=== PATIENT | female | born 1960 | race Hispanic/Latino ===

== ENCOUNTER 2018-02-02 18:29 | Emergency (ER) | payer SELFPAY ==
[2018-02-02 20:03] LABS: Urine Blood NEGATIVE (NEG); Urine Glucose NEGATIVE (NEG); Urine Protein NEGATIVE (NEG)
[2018-02-02 20:07] LABS: Urine Bacteria 20-50 /HPF (<20); Urine Culture Reflex Order NOT NEEDED; Urine RBC <5 /HPF (NONE SEEN)
--- NOTE | 2018-02-02 20:26 | RAD REPORT ---
EXAM DESCRIPTION: CT - Head Brain Wo Cont - 02/02/2018 8:11 pm CLINICAL HISTORY: Dizziness. Fall with head injury. COMPARISON: None. TECHNIQUE: Computed axial tomography of the head was obtained. IV contrast was not requested. All CT scans are performed using dose optimization technique as appropriate and may include automated exposure control or mA/KV adjustment according to patient size. FINDINGS: An intracranial bleed is not seen . The ventricles are normal in caliber. No extra-axial fluid collection is noted. Fluid within the sinuses/ mastoids is not seen. IMPRESSION: No acute intracranial abnormality is seen. If patient's symptoms persist MRI of the bra in would be recommended.
[2018-02-02 20:30] LABS: Albumin 3.3 g/dL (3.4-5.0); Bilirubin Direct 0.2 mg/dL (0-0.2); Bilirubin Total 0.6 mg/dL (0.2-1.0); Potassium 4.1 mmol/L (3.5-5.1); Protein, Total 7.6 g/dL (6.4-8.2)
[2018-02-02 20:36] LABS: Absolute Monocytes 0.8 K/uL (0.1-1.3); Absolute Neutrophil 3.2 K/uL (1.8-8.0); Basophils % 0.6 % (0-1.3); Eosinophils % 1.6 % (0-4.4); Hematocrit 36.7 % (36.0-45.0); Lymphocytes % 41.8 % (15.3-44.8); MCH 27.5 pg (27.0-35.0); MCV 81.8 fL (80-100); MPV 9.5 fL (7.6-11.3); Monocytes % 10.9 % (3.3-12.3); RBC Red Blood Cell Count 4.49 M/uL (3.86-4.86)
--- NOTE | 2018-02-02 20:46 | EDPHYS ---
Physician Documentation [facility] Name: Naomy Gutiérrez Age: 57 yrs Sex: Female : 1960 Arrival Date: 02/02/2018 Time: 18:32 Bed 13 Private MD: None, None ED Physician Amadou Torres HPI: 02/02 20:32 This 57 yrs old Female presents to ER via Wheelchair with complaints of jr8 [place]. 20:32 Family stated that she has been off balance and falling a lot. History of UTI's. Stated jr8 that she has had similar problems in past and ended up being UTI. Currently without pain. Severity of symptoms: At their worst the symptoms were mild in the emergency department the symptoms are unchanged. The patient has not experienced similar symptoms in the past. The patient has not recently seen a physician. Historical: - Allergies: 18:49 No Known Allergies; aa5 - PMHx: 18:49 Bipolar disorder; Schizophrenia; Depression; aa5 - PSHx: 18:49 Tubal ligation; aa5 - Immunization history:: Adult Immunizations unknown. - Social history:: Smoking status: Patient/guardian denies using tobacco. - Ebola Screening: : No symptoms or risks identified at this time. ROS: 20:32 Eyes: Negative for injury, pain, redness, and discharge, ENT: Negative for injury, jr8 pain, and discharge, Neck: Negative for injury, pain, and swelling, Cardiovascular: Negative for chest pain, palpitations, and edema, Respiratory: Negative for shortness of breath, cough, wheezing, and pleuritic chest pain, Abdomen/GI: Negative for abdominal pain, nausea, vomiting, diarrhea, and constipation, Back: Negative for injury and pain, MS/Extremity: Negative for injury and deformity, Skin: Negative for injury, rash, and discoloration. 20:32 Neuro: Positive for dizziness, gait disturbance, Negative for altered mental status, headache, hearing loss, loss of consciousness, numbness, seizure activity, speech changes, syncope, near syncope, tingling, tinnitus, tremor, visual changes, weakness. Exam: 20:32 Eyes: Pupils equal round and reactive to light, extra-ocular motions intact. Lids and jr8 lashes normal. Conjunctiva and sclera are non-icteric and not injected. Cornea within normal limits. Periorbital areas with no swelling, redness, or edema. ENT: Nares patent. No nasal discharge, no septal abnormalities noted. Tympanic membranes are normal and external auditory canals are clear. Oropharynx with no redness, swelling, or masses, exudates, or evidence of obstruction, uvula midline. Mucous membranes moist. Neck: Trachea midline, no thyromegaly or masses palpated, and no cervical lymphadenopathy. Supple, full range of motion without nuchal rigidity, or vertebral point tenderness. No Meningismus. Cardiovascular: Regular rate and rhythm with a normal S1 and S2. No gallops, murmurs, or rubs. Normal PMI, no JVD. No pulse deficits. Respiratory: Lungs have equal breath sounds bilaterally, clear to auscultation and percussion. No rales, rhonchi or wheezes noted. No increased work of breathing, no retractions or nasal flaring. Abdomen/GI: Soft, non-tender, with normal bowel sounds. No distension or tympany. No guarding or rebound. No evidence of tenderness throughout. Back: No spinal tenderness. No costovertebral tenderness. Full range of motion. Skin: Warm, dry with normal turgor. Normal color with no rashes, no lesions, and no evidence of cellulitis. MS/ Extremity: Pulses equal, no cyanosis. Neurovascular intact. Full, normal range of motion. Neuro: Awake and alert, GCS 15, oriented to person, place, time, and situation. Cranial nerves II-XII grossly intact. Motor strength 5/5 in all extremities. Sensory grossly intact. Cerebellar exam normal. Normal gait. Vital Signs: 18:49 BP 103 / 60; Pulse 75; Resp 16 S; Temp 97.4(TE); Pulse Ox 95% on R/A; Weight 101.6 kg aa5 (R); Height 5 ft. 2 in. (157.48 cm) (R); Pain 0/10; 19:53 BP 105 / 65 Supine; Pulse 58; Resp 16 S; Pulse Ox 95% on R/A; bs1 19:55 BP 113 / 84 Sitting; Pulse 69; Resp 16; Pulse Ox 96% on R/A; bs1 20:00 BP 93 / 76 Standing; Pulse 79; Resp 16; Pulse Ox 100% on R/A; bs1 21:00 BP 112 / 61; Pulse 62; Resp 16; Temp 98(O); Pulse Ox 97% on R/A; Pain 0/10; bs1 18:49 Body Mass Index 40.97 (101.60 kg, 157.48 cm) aa5 MDM: 18:54 Patient medically screened. 20:45 Data reviewed: vital signs, nurses notes, lab test result(s), radiologic studies, CT jr8 scan, and as a result, I will discharge patient. Data interpreted: Pulse oximetry: on room air is 100 %. Interpretation: normal. Counseling: I had a detailed discussion with the patient and/or guardian regarding: the historical points, exam findings, and any diagnostic results supporting the discharge/admit diagnosis, lab results, the need for outpatient follow up, a family practitioner, to return to the emergency department if symptoms worsen or persist or if there are any questions or concerns that arise at home. 02/02 19:23 Order name: Urine Microscopic Only; Complete Time: 20:30 [facility] 02/02 19:24 Order name: Urine Culture [facility] 02/02 19:24 Order name: Urine Culture [facility] 02/02 19:29 Order name: Urine Dipstick--Ancillary (enter results); Complete Time: 20:30 [facility] 02/02 19:29 Order name: Urine --Ancillary (enter results); Complete Time: 20:30 [facility] 02/02 19:30 Order name: Basic Metabolic Panel; Complete Time: 20:31 02/02 19:30 Order name: CBC with Diff; Complete Time: 20:45 [facility] 02/02 19:30 Order name: Creatinine for Radiology; Complete Time: 20:30 [facility] 02/02 19:30 Order name: Hepatic Function; Complete Time: 20:31 02/02 19:30 Order name: IV Saline Lock; Complete Time: 20:22 [facility] 02/02 19:30 Order name: Labs collected and sent; Complete Time: 20:22 02/02 19:30 Order name: Magnesium; Complete Time: 20:31 02/02 19:30 Order name: CT Head Brain wo Cont; Complete Time: 20:30 02/02 19:30 Order name: Urine Dipstick-Ancillary (obtain specimen); Complete Time: 20:22 [facility] 02/02 19:30 Order name: Orthostatics; Complete Time: 20:22 jr8 Administered Medications: 20:51 Drug: Rocephin - (cefTRIAXone) 1 grams Route: IVPB; Infused Over: 30 mins; Site: left bs1 antecubital; 21:04 Follow up: IV Status: Completed infusion bs1 Disposition: 02/03 12:11 Co-signature as Attending Physician, Amadou Torres MD I agree with the assessment and sabine plan of care. Disposition: 02/02/18 20:45 Discharged to Home. Impression: Urinary tract infection, site not specified. - Condition is Stable. - Discharge Instructions: Urinary Tract Infection, Adult. - Prescriptions for Macrobid 100 mg Oral Capsule - take 1 capsule by ORAL route every 12 hours for 10 days; 20 capsule. - Medication Reconciliation Form, Thank You Letter, Antibiotic Education, Prescription Opioid Use form. - Follow up: Private Physician; When: 1 - 2 days; Reason: Recheck today's complaints, Continuance of care, Re-evaluation by your physician. - Problem is new. - Symptoms have improved. Signatures: Dispatcher [employer] EDMT Amadou Torres MD MD cha Calderon, Audri, RN RN aa5 Magdaleno Fuller PA PA jr8 Nancy Aggarwal, RN RN bs1 Corrections: (The following items were deleted from the chart) 02/02 21:16 20:45 02/02/2018 20:45 Discharged to Home. Impression: Urinary tract infection, site bs1 not specified. Condition is Stable. Forms are Medication Reconciliation Form, Thank You Letter, Antibiotic Education, Prescription Opioid Use. Follow up: Private Physician; When: 1 - 2 days; Reason: Recheck today's complaints, Continuance of care, Re-evaluation by your physician. Problem is new. Symptoms have improved. jr8
--- NOTE | 2018-02-02 20:46 | ER ---
Nurse's Notes [facility] Name: Naomy Gutiérrez Age: 57 yrs Sex: Female : 1960 Arrival Date: 02/02/2018 Time: 18:32 Bed 13 Private MD: None, None Diagnosis: Urinary tract infection, site not specified Presentation: 02/02 18:46 Presenting complaint: Patient states: "I fell today". Pt states "I just fell aa5 backwards". Pt's daughter states "she's been falling a lot over the last few weeks and she's been confused recently". Pt currently A \\T\\ 0 x 3 in triage. Pt denies pain. Transition of care: patient was not received from another setting of care. Onset of symptoms was January 2018. Risk Assessment: Do you want to hurt yourself or someone else? Patient reports no desire to harm self or others. Initial Sepsis Screen: Does the patient meet any 2 criteria? No. Patient's initial sepsis screen is negative. Does the patient have a suspected source of infection? No. Patient's initial sepsis screen is negative. Care prior to arrival: None. 18:46 Method Of Arrival: Wheelchair aa5 18:46 Acuity: ALBARO 3 aa5 Historical: - Allergies: 18:49 No Known Allergies; aa5 - PMHx: 18:49 Bipolar disorder; Schizophrenia; Depression; aa5 - PSHx: 18:49 Tubal ligation; aa5 - Immunization history:: Adult Immunizations unknown. - Social history:: Smoking status: Patient/guardian denies using tobacco. - Ebola Screening: : No symptoms or risks identified at this time. Screenin:24 Abuse screen: Denies threats or abuse. Denies injuries from another. Nutritional bs1 screening: No deficits noted. Tuberculosis screening: No symptoms or risk factors identified. Fall Risk Fall in past 12 months (25 points). No secondary diagnosis (0 pts). IV access (20 points). Ambulatory Aid- Crutches/Cane/Walker (15 pts). Gait- Weak (10 pts.). Mental Status- Overestimates/Forgets Limitations (15 pts.). Total Collier Fall Scale indicates High Risk Score (45 or more points). Side Rails Up X 2 Frequent Obs/Assessments Occuring Family Present and informed to notify staff if the need to leave the bedside As available patient and family educated on Fall Prevention Program and Strategies. Assessment: 19:10 General: Appears in no apparent distress. Behavior is cooperative, flat, quiet. bs1 19:10 Pain: Complains of pain in right lower abdomen, left shoulder. Neuro: Level of bs1 Consciousness is awake, confused, Reports weakness family reports patient having "shaky spells" and falling more frequently. Cardiovascular: Denies chest pain, shortness of breath, Heart tones S1 S2 present Capillary refill < 3 seconds Patient's skin is warm and dry. Respiratory: Airway is patent Trachea midline Respiratory effort is even, unlabored, Respiratory pattern is regular, symmetrical, Breath sounds are clear bilaterally. GI: No signs and/or symptoms were reported involving the gastrointestinal system. : Urine is dark dariela, foul smelling urine. EENT: No signs and/or symptoms were reported regarding the EENT system. Derm: Skin is intact. Musculoskeletal: Circulation, motion, and sensation intact. Capillary refill < 3 seconds. 21:00 Reassessment: Patient appears in no apparent distress at this time. Patient and/or bs1 family updated on plan of care and expected duration. Pain level reassessed. Patient is alert, oriented x 3, equal unlabored respirations, skin warm/dry/pink. Informed patient/family of discharge instructions. Patient/family state understanding of POC. Vital Signs: 18:49 BP 103 / 60; Pulse 75; Resp 16 S; Temp 97.4(TE); Pulse Ox 95% on R/A; Weight 101.6 kg aa5 (R); Height 5 ft. 2 in. (157.48 cm) (R); Pain 0/10; 19:53 BP 105 / 65 Supine; Pulse 58; Resp 16 S; Pulse Ox 95% on R/A; bs1 19:55 BP 113 / 84 Sitting; Pulse 69; Resp 16; Pulse Ox 96% on R/A; bs1 20:00 BP 93 / 76 Standing; Pulse 79; Resp 16; Pulse Ox 100% on R/A; bs1 21:00 BP 112 / 61; Pulse 62; Resp 16; Temp 98(O); Pulse Ox 97% on R/A; Pain 0/10; bs1 18:49 Body Mass Index 40.97 (101.60 kg, 157.48 cm) aa5 ED Course: 18:32 Patient arrived in ED. mr 18:32 None, None is Private Physician. mr 18:48 Triage completed. aa5 18:48 Arm band placed on. aa5 18:54 Magdaleno Fuller PA is PHCP. jr8 18:54 Amadou Torres MD is Attending Physician. jr8 19:15 Patient has correct armband on for positive identification. Bed in low position. Call bs1 light in reach. Side rails up X 1. Pulse ox on. NIBP on. 19:19 Nancy Aggarwal, RN is Primary Nurse. bs1 19:56 No provider procedures requiring assistance completed. Inserted saline lock: 20 gauge bs1 in left antecubital area, using aseptic technique. Blood collected. by me, Flushed with 10cc. 20:11 CT Head Brain wo Cont In Process Unspecified. EDMS 21:08 IV discontinued, bleeding controlled, No redness/swelling at site. Pressure dressing bs1 applied. Administered Medications: 20:51 Drug: Rocephin - (cefTRIAXone) 1 grams Route: IVPB; Infused Over: 30 mins; Site: left bs1 antecubital; 21:04 Follow up: IV Status: Completed infusion bs1 Outcome: 20:45 Discharge ordered by . jr8 21:08 Discharged to home ambulatory, with family. bs1 21:08 Condition: stable 21:08 Discharge instructions given to patient, family, Instructed on discharge instructions, follow up and referral plans. medication usage, Demonstrated understanding of instructions, follow-up care, medications, Prescriptions given X 1. 21:16 Patient left the ED. bs1 Addendum: 02/05/2018 07:36 Addendum: Culture Results: Positive urine culture. No further action required. Bacteria s s sensitive to prescribed antibiotic. Signatures: Dispatcher [employer] EDUT Leila McclendonKylie RN RN [email or web address] Mariann Young RN RN ss Roszak, Josh, PA PA jr8 Nancy Aggarwal, RN RN bs1 Corrections: (The following items were deleted from the chart) 02/02 18:50 18:46 Presenting complaint: Patient states: "I fell today". Pt states "I just fell aa5 backwards". Pt's daughter states "she's been falling a lot over the last few weeks and she's been confused recently". Pt currently A \\T\\ 0 x 3 in triage. aa5
[2018-02-02] MEDS ORDERED: CEFTRIAXONE/SWI 1gm 1 GM/10 ML SYR ONE (20:52)
== END 2018-02-02 21:16 | disposition home or self-care (01) ==
LOC: SUPCPDRO 18:29 → ER 18:29
DX: N39.0 Urinary tract infection, site not specified (principal)
CPT/HCPCS: 36415; 70450; 80048; 80076; 81003; 81015; 81025; 83735; 85025; 87077; 87086; 87088; 87186; 96374; 99284; J0696

== ENCOUNTER 2018-09-19 05:12 | Emergency (ER) | payer SELFPAY ==
[2018-09-19 05:49] LABS: Absolute Lymphocytes (CBC) 3.8 K/uL (0.7-4.9); Absolute Monocytes 1.1 K/uL (0.1-1.3); Absolute Neutrophil 5.5 K/uL (1.8-8.0); Basophils % 0.7 % (0-1.3); Eosinophils % 1.1 % (0-4.4); Hematocrit 39.9 % (36.0-45.0); Lymphocytes % 35.8 % (15.3-44.8); MPV 9.7 fL (7.6-11.3)
[2018-09-19] MEDS ORDERED: NA CHLORIDE 0.9% 1,000 ML ONE (05:56)
[2018-09-19] MEDS ORDERED: ONDANSETRON 4 MG/2 ML VIAL ONE (05:56)
[2018-09-19 06:05] LABS: ALT/SGPT 14 U/L (12-78); AST/SGOT 16 U/L (15-37); Albumin 3.8 g/dL (3.4-5.0); Alkaline Phosphatase 86 U/L (45-117); BUN Blood Urea Nitrogen 11 mg/dL (7-18); Bicarbonate 30 mmol/L (21-32); Bilirubin Direct < 0.1 mg/dL (0-0.2); Bilirubin Total 0.3 mg/dL (0.2-1.0); Glucose Level 95 mg/dL (74-106); Lipase 58 U/L (73-393); Potassium 3.7 mmol/L (3.5-5.1); Protein, Total 8.4 g/dL (6.4-8.2); Sodium Level 135 mmol/L (136-145)
[2018-09-19] MEDS ORDERED: KETOROLAC 30 MG/ML INJ ONE (06:51)
--- NOTE | 2018-09-19 07:41 | ER ---
Nurse's Notes [facility] Name: Naomy Gutiérrez Age: 58 yrs Sex: Female : 1960 Arrival Date: 09/19/2018 Time: 05:13 Bed 5 Private MD: Diagnosis: Nausea and vomiting;Back pain Presentation: 09/19 05:30 Presenting complaint: Patient states: vomiting and lower flank pain that radiates to tl2 front since 1999 last night. Transition of care: patient was not received from another setting of care. Onset of symptoms was September 18, 2018 at 20:00. Risk Assessment: Do you want to hurt yourself or someone else? Patient reports no desire to harm self or others. Initial Sepsis Screen: Does the patient meet any 2 criteria? No. Patient's initial sepsis screen is negative. Does the patient have a suspected source of infection? No. Patient's initial sepsis screen is negative. Care prior to arrival: None. 05:30 Method Of Arrival: Ambulatory tl2 05:30 Acuity: ALBARO 3 tl2 Triage Assessment: 05:32 General: Appears in no apparent distress. uncomfortable, Behavior is calm, cooperative, tl2 appropriate for age. Pain: Complains of pain in left mid back and right mid back Pain radiates to right lower quadrant and left lower quadrant. Neuro: Level of Consciousness is awake, alert, obeys commands, Oriented to person, place, time, situation. Cardiovascular: Denies chest pain. Respiratory: Airway is patent Respiratory effort is even, unlabored, Respiratory pattern is regular, symmetrical. GI: Reports lower abdominal pain. : No signs and/or symptoms were reported regarding the genitourinary system. Derm: Skin is pink, warm \T\ dry. Historical: - Allergies: 05:32 No Known Allergies; tl2 - Home Meds: 05:32 Cogentin Oral [Active]; Haldol Oral [Active]; Depakote Oral [Active]; tl2 - PMHx: 05:32 Bipolar disorder; Depression; Schizophrenia; tl2 - PSHx: 05:32 None; tl2 - Immunization history:: Adult Immunizations up to date. - Social history:: Smoking status: Patient/guardian denies using tobacco. - Ebola Screening: : No symptoms or risks identified at this time. Screenin:36 Abuse screen: Denies threats or abuse. Nutritional screening: No deficits noted. tl2 Tuberculosis screening: No symptoms or risk factors identified. Fall Risk None identified. Assessment: 05:36 General: see triage assessment. tl2 07:00 Reassessment: RECD REPORT FROM CALVIN JANSEN. 58YO HF P/W VOMITING AND BILATERAL FLANK bp PAIN. LABS IN PROCESS, NO ACUTE DISTRESS AT THIS TIME. 08:05 Reassessment: PT D/C HOME AMBULATORY WITH FAMILY, DX WITH NAUSEA AND VOMITING. bp Vital Signs: 05:32 BP 171 / 95; Pulse 63; Resp 18; Temp 97.2; Pulse Ox 100% on R/A; Weight 108.86 kg; tl2 Height 5 ft. 4 in. (162.56 cm); Pain 5/10; 06:49 BP 144 / 91; Pulse 69; Resp 18; Pulse Ox 98% on R/A; tl2 07:15 BP 138 / 79; Pulse 63; Resp 16; Pulse Ox 100% ; bp 05:32 Body Mass Index 41.20 (108.86 kg, 162.56 cm) tl2 ED Course: 05:13 Patient arrived in ED. do 05:31 Triage completed. tl2 05:32 Arm band placed on right wrist. tl2 05:36 Patient has correct armband on for positive identification. Placed in gown. Bed in low tl2 position. Call light in reach. Side rails up X 1. Adult w/ patient. 05:40 Inserted saline lock: 20 gauge in right antecubital area, using aseptic technique. tl2 Blood collected. placed by kaleb Allen. 06:12 Suha Raya FNP-C is [facility]. snw 06:12 Dwayne Pichardo MD is Attending Physician. snw 07:[address], JUSTYNA is Primary Nurse. bp 08:05 No provider procedures requiring assistance completed. IV discontinued, intact, bp bleeding controlled, No redness/swelling at site. Pressure dressing applied. Administered Medications: 05:51 Drug: NS 0.9% 1000 ml Route: IV; Rate: 125 ml/hr; Site: right antecubital; tl2 07:27 Follow up: IV Status: Completed infusion; IV Intake: 1000ml bp 05:51 Drug: Zofran 4 mg Route: IVP; Site: right antecubital; tl2 07:27 Follow up: Response: Nausea is decreased bp 06:41 Drug: TORadol 30 mg Route: IVP; Infused Over: 2 mins; Site: right antecubital; tl1 07:27 Follow up: Response: Pain is decreased bp Intake: 07:27 IV: 1000ml; Total: 1000ml. bp Outcome: 07:40 Discharge ordered by MD. arreaga 08:06 Discharged to home ambulatory, with family. bp 08:06 Condition: stable 08:06 Discharge instructions given to patient, Instructed on discharge instructions, follow up and referral plans. medication usage, Demonstrated understanding of instructions, follow-up care, medications, Prescriptions given X 2. 08:06 Patient left the ED. bp Signatures: Suha Raya, MANAGER OF CASE MANAGEMENT-C MANAGER OF CASE MANAGEMENT-Cs[facility] Mary Huerta, RN RN tl1 Ayesha Gates Taylor RN RN tl2 Abhijit Way RN RN bp
--- NOTE | 2018-09-19 07:41 | EDPHYS ---
Physician Documentation [facility] Name: Naomy Gutiérrez Age: 58 yrs Sex: Female : 1960 Arrival Date: 09/19/2018 Time: 05:13 Bed 5 Private MD: ED Physician Dwayne Pichardo HPI: 09/19 07:38 This 58 yrs old Female presents to ER via Ambulatory with complaints of snw Vomiting, Back Pain. 07:38 The patient presents to the emergency department with nausea, vomiting. Onset: The snw symptoms/episode began/occurred suddenly. Possible causes: unknown. The symptoms are aggravated by nothing. The symptoms are alleviated by nothing. Severity of symptoms: At their worst the symptoms were moderate in the emergency department the symptoms have improved. It is unknown whether or not the patient has had similar symptoms in the past. The patient has not recently seen a physician. Historical: - Allergies: 05:32 No Known Allergies; tl2 - Home Meds: 05:32 Cogentin Oral [Active]; Haldol Oral [Active]; Depakote Oral [Active]; tl2 - PMHx: 05:32 Bipolar disorder; Depression; Schizophrenia; tl2 - PSHx: 05:32 None; tl2 - Immunization history:: Adult Immunizations up to date. - Social history:: Smoking status: Patient/guardian denies using tobacco. - Ebola Screening: : No symptoms or risks identified at this time. ROS: 07:29 Constitutional: Negative for fever, chills, and weight loss, Eyes: Negative for injury, snw pain, redness, and discharge, ENT: Negative for injury, pain, and discharge, Neck: Negative for injury, pain, and swelling, Cardiovascular: Negative for chest pain, palpitations, and edema, Respiratory: Negative for shortness of breath, cough, wheezing, and pleuritic chest pain. 07:29 Back: Negative for injury. + generalized back pain : Negative for injury, bleeding, discharge, and swelling, MS/Extremity: Negative for injury and deformity, Skin: Negative for injury, rash, and discoloration, Neuro: Negative for headache, weakness, numbness, tingling, and seizure. 07:29 Abdomen/GI: Positive for nausea, vomited x 2 episodes since start of symptoms 3 days ago. Exam: 07:28 Constitutional: This is a well developed, well nourished patient who is awake, alert, snw and in no acute distress. Head/Face: Normocephalic, atraumatic. Eyes: Pupils equal round and reactive to light, extra-ocular motions intact. Lids and lashes normal. Conjunctiva and sclera are non-icteric and not injected. Cornea within normal limits. Periorbital areas with no swelling, redness, or edema. ENT: Nares patent. No nasal discharge, no septal abnormalities noted. Tympanic membranes are normal and external auditory canals are clear. Oropharynx with no redness, swelling, or masses, exudates, or evidence of obstruction, uvula midline. Mucous membranes moist. Neck: Trachea midline, no thyromegaly or masses palpated, and no cervical lymphadenopathy. Supple, full range of motion without nuchal rigidity, or vertebral point tenderness. No Meningismus. Chest/axilla: Normal chest wall appearance and motion. Nontender with no deformity. No lesions are appreciated. Cardiovascular: Regular rate and rhythm with a normal S1 and S2. No gallops, murmurs, or rubs. Normal PMI, no JVD. No pulse deficits. Respiratory: Lungs have equal breath sounds bilaterally, clear to auscultation and percussion. No rales, rhonchi or wheezes noted. No increased work of breathing, no retractions or nasal flaring. Abdomen/GI: Soft, non-tender, with normal bowel sounds. No distension or tympany. No guarding or rebound. No evidence of tenderness throughout. MS/ Extremity: Pulses equal, no cyanosis. Neurovascular intact. Full, normal range of motion. Neuro: Awake and alert, GCS 15, oriented to person, place, time, and situation. Cranial nerves II-XII grossly intact. Motor strength 5/5 in all extremities. Sensory grossly intact. Cerebellar exam normal. Normal gait. Psych: Awake, alert, with orientation to person, place and time. Behavior, mood, and affect are within normal limits. 07:28 Skin: Warm, dry with normal turgor. Normal color with no rashes, no lesions, and no evidence of cellulitis. 07:28 Back: pain, that is mild, that is moderate, of the left scapular area, right scapular area, left subscapular area, right subscapular area, thoracic area, lumbar area, left low back, left mid back, right mid back and right low back, ROM is normal, normal spinal alignment noted. Vital Signs: 05:32 BP 171 / 95; Pulse 63; Resp 18; Temp 97.2; Pulse Ox 100% on R/A; Weight 108.86 kg; tl2 Height 5 ft. 4 in. (162.56 cm); Pain 5/10; 06:49 BP 144 / 91; Pulse 69; Resp 18; Pulse Ox 98% on R/A; tl2 07:15 BP 138 / 79; Pulse 63; Resp 16; Pulse Ox 100% ; bp 05:32 Body Mass Index 41.20 (108.86 kg, 162.56 cm) tl2 MDM: 06:12 Patient medically screened. snw 07:34 Data reviewed: vital signs, nurses notes. Data interpreted: Pulse oximetry: on room air snw is 100 %. Interpretation: normal. Counseling: I had a detailed discussion with the patient and/or guardian regarding: the historical points, exam findings, and any diagnostic results supporting the discharge/admit diagnosis, lab results, the need for outpatient follow up. Response to treatment: pt with very vague complaints, VSS, toradol greatly relieved her symptoms. Depakote level high normal discussed. Will dc with pain and nausea medications with return precautions. 09/19 05:28 Order name: Basic Metabolic Panel; Complete Time: 06:12 tw4 09/19 05:28 Order name: CBC with Diff; Complete Time: 06:12 4 09/19 05:28 Order name: Creatinine for Radiology; Complete Time: 06:12 4 09/19 05:28 Order name: Hepatic Function; Complete Time: 06:12 09/19 05:28 Order name: Lipase; Complete Time: 06:12 09/19 06:19 Order name: Depakote tl2 09/19 05:28 Order name: IV Saline Lock; Complete Time: 05:50 4 09/19 05:28 Order name: Labs collected and sent; Complete Time: 05:50 4 09/19 05:28 Order name: Urine Dipstick-Ancillary (obtain specimen); Complete Time: 07:27 tw4 09/19 06:20 Order name: Valproic Acid (Depakene) Level; Complete Time: 07:28 EDMS 09/19 07:38 Order name: Urine Dipstick--Ancillary (enter results) eb Administered Medications: 05:51 Drug: NS 0.9% 1000 ml Route: IV; Rate: 125 ml/hr; Site: right antecubital; tl2 07:27 Follow up: IV Status: Completed infusion; IV Intake: 1000ml bp 05:51 Drug: Zofran 4 mg Route: IVP; Site: right antecubital; tl2 07:27 Follow up: Response: Nausea is decreased bp 06:41 Drug: TORadol 30 mg Route: IVP; Infused Over: 2 mins; Site: right antecubital; tl1 07:27 Follow up: Response: Pain is decreased bp Disposition: 09/19/18 07:40 Discharged to Home. Impression: Nausea and vomiting, Back pain. - Condition is Stable. - Discharge Instructions: Back Pain, Adult, Nausea and Vomiting, Adult, Back Exercises, Back Injury Prevention. - Prescriptions for Zofran 4 mg Oral Tablet - take 1 tablet by ORAL route every 12 hours As needed; 20 tablet. Diclofenac Sodium 75 mg Oral Tablet Sustained Release - take 1 tablet by ORAL route 2 times per day; 30 tablet. - Medication Reconciliation Form, Thank You Letter, Antibiotic Education, Prescription Opioid Use form. - Follow up: Private Physician; When: 2 - 3 days; Reason: Recheck today's complaints, Continuance of care, Re-evaluation by your physician. Follow up: Emergency Department; When: As needed; Reason: Worsening of condition. Signatures: Dispatcher [employer] [facility] Suha Raya, MARYELLEN-C RELIABILITY SPECIALIST-[employer] Mary Huerta RN RN tl1 Jessica Wolfe RN RN tl2 Abhijit Way, JUSTYNA RN bp Dwayne Pichardo MD MD tw4 Corrections: (The following items were deleted from the chart) 08:06 07:40 09/19/2018 07:40 Discharged to Home. Impression: Nausea and vomiting; Back pain. bp Condition is Stable. Forms are Medication Reconciliation Form, Thank You Letter, Antibiotic Education, Prescription Opioid Use. Follow up: Private Physician; When: 2 - 3 days; Reason: Recheck today's complaints, Continuance of care, Re-evaluation by your physician. Follow up: Emergency Department; When: As needed; Reason: Worsening of condition. snw
[2018-09-19 08:25] LABS: Urine Blood TRACE (NEG); Urine Glucose NEGATIVE (NEG); Urine Protein TRACE (NEG)
== END 2018-09-19 08:06 | disposition home or self-care (01) ==
LOC: ER 05:12
DX: R11.2 Nausea with vomiting, unspecified (principal); M54.9 Dorsalgia, unspecified; F31.9 Bipolar disorder, unspecified; F32.9 Major depressive disorder, single episode, unspecified; F20.9 Schizophrenia, unspecified
CPT/HCPCS: 36415; 80048; 80076; 80164; 81003; 83690; 85025; 96361; 96374; 96375; 99284; J2405; J7030

== ENCOUNTER 2019-12-29 13:24 | Emergency (ER) | payer SELFPAY ==
[2019-12-29 15:10] LABS: Absolute Lymphocytes (CBC) 3.4 K/uL (0.7-4.9); Basophils % 0.7 % (0-1.3); Hematocrit 35.1 % (36.0-45.0); Lymphocytes % 40.5 % (15.3-44.8); MPV 9.2 fL (7.6-11.3); RBC Red Blood Cell Count 4.28 M/uL (3.86-4.86)
--- NOTE | 2019-12-29 15:15 | RAD REPORT ---
EXAM DESCRIPTION: RAD - Hip Left 2 View - 12/29/2019 3:05 pm CLINICAL HISTORY: Left hip pain FINDINGS: No fracture or dislocation is seen. Moderate spondylosis consisting joint space narrowing, osteophytes and subchondral sclerosis. Bones are osteoporotic
--- NOTE | 2019-12-29 15:16 | RAD REPORT ---
EXAM DESCRIPTION: RAD - Foot Left 3 View - 12/29/2019 3:06 pm CLINICAL HISTORY: Left Foot pain FINDINGS: No fracture or dislocation is seen. Osteoporosis. Hallux valgus deformity Large calcaneal spurs
[2019-12-29 15:55] LABS: Albumin 3.7 g/dL (3.4-5.0); Bilirubin Total 0.4 mg/dL (0.2-1.0); Potassium 4.4 mmol/L (3.5-5.1); Protein, Total 7.9 g/dL (6.4-8.2)
--- NOTE | 2019-12-29 16:22 | ER ---
Nurse's Notes [facility] Name: Naomy Gutiérrez Age: 59 yrs Sex: Female : 1960 Arrival Date: 12/29/2019 Time: 13:28 Bed 28 Private MD: Diagnosis: Contusion of left foot;Pain in left hip;Pain in left foot Presentation: 12/28 13:35 Chief complaint: Patient states: Taking OTC water pills x 2 days Patient's son or jl7 daughter states: Low back, left leg and left foot hurting x 3 days, pt denies urinary symptoms, reports swelling to bilateral knees. Coronavirus screen: Patient denies a cough. Patient denies shortness of breath or difficulty breathing. Patient denies measured and/or subjective temperature greater than 100.4F prior to today's visit. Patient denies travel on a cruise ship or to a country the [facility] currently lists as an affected area. Patient denies contact with known and/or suspected case of COVID-19. Proceed with normal triage. Ebola Screen: No symptoms or risks identified at this time. Initial Sepsis Screen: Does the patient meet any 2 criteria? No. Patient's initial sepsis screen is negative. Does the patient have a suspected source of infection? No. Patient's initial sepsis screen is negative. Risk Assessment: Do you want to hurt yourself or someone else? Patient reports no desire to harm self or others. Onset of symptoms was December 29, 2019. Care prior to arrival: None. Transition of care: patient was not received from another setting of care. 13:35 Method Of Arrival: Ambulatory [facility] 13:35 Acuity: ALBARO 3 jl7 Historical: - Allergies: 13:40 No Known Allergies; jl7 - Home Meds: 13:40 Cogentin Oral [Active]; Depakote Oral [Active]; Haldol Oral [Active]; jl7 14:17 "OTC water pills" [Active]; vc 14:18 cranberry pills [Active]; vc - PMHx: 13:40 Bipolar disorder; Depression; Schizophrenia; jl7 - PSHx: 13:40 None; jl7 - Immunization history:: Adult Immunizations unknown. - Social history:: Smoking status: Patient denies any tobacco usage or history of. - Family history:: not pertinent. - Hospitalizations: : No recent hospitalization is reported. Screenin:30 Abuse screen: Denies threats or abuse. Nutritional screening: No deficits noted. vc Tuberculosis screening: No symptoms or risk factors identified. Fall Risk None identified. Assessment: 14:30 General: Appears in no apparent distress. comfortable, Behavior is calm, cooperative, vc appropriate for age. Pain: Complains of pain in left low back, left hip and left fifth toe Quality of pain is described as sharp, shooting. Neuro: Level of Consciousness is awake, alert, obeys commands, Oriented to person, place, time, situation. Cardiovascular: Capillary refill < 3 seconds Patient's skin is warm and dry. Respiratory: Airway is patent Respiratory effort is even, unlabored, Respiratory pattern is regular, symmetrical. Derm: Bruising that is bright red, on left fifth toe. Musculoskeletal: Circulation, motion, and sensation intact. Range of motion: intact in all extremities. 15:30 Reassessment: Patient appears in no apparent distress at this time. Patient and/or vc family updated on plan of care and expected duration. Pain level reassessed. Patient is alert, oriented x 3, equal unlabored respirations, skin warm/dry/pink. 16:05 Reassessment: Patient appears in no apparent distress at this time. Patient and/or vc family updated on plan of care and expected duration. Pain level reassessed. Patient is alert, oriented x 3, equal unlabored respirations, skin warm/dry/pink. Patient states symptoms have not improved. Vital Signs: 13:35 BP 124 / 76; Pulse 75; Resp 17; Temp 97.2; Pulse Ox 96% ; Weight 96.16 kg; Pain 8/10; jl7 16:10 BP 140 / 79; Pulse 60; Resp 17; Pulse Ox 100% on R/A; vc ED Course: 13:28 Patient arrived in ED. mr 13:38 Triage completed. jl7 13:40 Arm band placed on right wrist. jl7 14:12 Vesna Comer, JUSTYNA is Primary Nurse. vc 14:23 Abiel Petty MD is Attending Physician. rn 14:30 Patient has correct armband on for positive identification. Bed in low position. Call vc light in reach. Pulse ox on. NIBP on. 14:30 Warm blanket given. vc 15:04 XRAY Foot LEFT 3 View In Process Unspecified. EDMS 15:04 XRAY Hip LEFT 2 view In Process Unspecified. EDMS 16:47 No provider procedures requiring assistance completed. IV discontinued, intact, vc bleeding controlled, No redness/swelling at site. Pressure dressing applied. Administered Medications: No medications were administered Outcome: 16:21 Discharge ordered by . rn 16:48 Discharged to home ambulatory. vc 16:48 Condition: good 16:48 Discharge instructions given to patient, Instructed on discharge instructions, follow up and referral plans. Demonstrated understanding of instructions, follow-up care. 17:00 Patient left the ED. vc Signatures: Dispatcher [employer] EDME HakanAgata PettyAbiel MD MD rn Leal, Jahala RN RN jl7 Vesna Comer RN RN vc
--- NOTE | 2019-12-29 16:22 | EDPHYS ---
Physician Documentation [facility] Name: Naomy Gutiérrez Age: 59 yrs Sex: Female : 1960 Arrival Date: 12/29/2019 Time: 13:28 Bed 28 Private MD: ED Physician Abiel Petty HPI: 12/28 16:12 This 59 yrs old Female presents to ER via Ambulatory with complaints of foot rn pain, Feet Swelling, Leg Pain. 16:13 The patient presents with an injury, pain. The complaints affect the left foot. Onset: rn The symptoms/episode began/occurred 2 day(s) ago. Modifying factors: The symptoms are alleviated by nothing, the symptoms are aggravated by weight bearing, movement. Severity of symptoms: At their worst the symptoms were mild, in the emergency department the symptoms are unchanged. The patient has not experienced similar symptoms in the past. Reports kicked in left foot, 5th toe, + swelling and bruising, happened 2 days ago and pain with ambulation. Also reports after that began, started to have intermittent left hip and lower back pain, no trauma to that region, no fever, no decreased ROM. Also noticed subjective swelling to both knees and legs, taking OTC fluid pills with some improvement. No hx of heart failure or kidney failure. . Historical: - Allergies: 13:40 No Known Allergies; jl7 - Home Meds: 13:40 Cogentin Oral [Active]; Depakote Oral [Active]; Haldol Oral [Active]; jl7 14:17 "OTC water pills" [Active]; vc 14:18 cranberry pills [Active]; vc - PMHx: 13:40 Bipolar disorder; Depression; Schizophrenia; jl7 - PSHx: 13:40 None; jl7 - Immunization history:: Adult Immunizations unknown. - Social history:: Smoking status: Patient denies any tobacco usage or history of. - Family history:: not pertinent. - Hospitalizations: : No recent hospitalization is reported. ROS: 16:13 Constitutional: Negative for fever, chills, and weight loss, Back: Negative for injury rn MS/Extremity: + left foot and left hip pain Skin: Neg for open wounds. Neuro: Negative for headache, weakness, numbness, tingling, and seizure. Exam: 16:16 Constitutional: This is a well developed, well nourished patient who is awake, alert, rn and in no acute distress. Skin: Warm, dry and no evidence of cellulitis. MS/ Extremity: Pulses equal, no cyanosis. Neurovascular intact. Full, normal range of motion. Equal circumference. FROM left hip without swelling or masses. No discoloration. + 5th toe with bruising, mild painful ROM, no deformity or open wounds. Vital Signs: 13:35 BP 124 / 76; Pulse 75; Resp 17; Temp 97.2; Pulse Ox 96% ; Weight 96.16 kg; Pain 8/10; jl7 16:10 BP 140 / 79; Pulse 60; Resp 17; Pulse Ox 100% on R/A; vc MDM: 14:23 Patient medically screened. rn 16:18 Differential diagnosis: fracture, sprain, arthritis. Data reviewed: vital signs, nurses rn notes, radiologic studies, plain films, and as a result, I will discharge patient. Counseling: I had a detailed discussion with the patient and/or guardian regarding: the historical points, exam findings, and any diagnostic results supporting the discharge/admit diagnosis, lab results, radiology results, the need for outpatient follow up, to return to the emergency department if symptoms worsen or persist or if there are any questions or concerns that arise at home. Special discussion: I discussed with the patient/guardian in detail that at this point there is no indication for admission to the hospital. It is understood, however, that if the symptoms persist or worsen the patient needs to return immediately for re-evaluation. ED course: No heart failure/kidney failure, neg xrays, will dc home with ibuprofen and pcp f/u. . 12/28 14:35 Order name: CMP; Complete Time: 15:58 vc 12/28 14:35 Order name: Basic Metabolic Panel vc 12/28 14:30 Order name: XRAY Foot LEFT 3 View; Complete Time: 15:46 rn 12/28 14:35 Order name: BNP; Complete Time: 15:58 vc 12/28 14:35 Order name: CBC with Manual Differential 12/28 15:36 Order name: Urine Dipstick--Ancillary (enter results) bd 12/28 14:30 Order name: XRAY Hip LEFT 2 view; Complete Time: 15:46 rn Administered Medications: No medications were administered Disposition: 12/29/19 16:21 Discharged to Home. Impression: Contusion of left foot, Pain in left hip, Pain in left foot. - Condition is Stable. - Discharge Instructions: Arthritis, Foot Contusion, Foot Pain. - Medication Reconciliation Form, Thank You Letter, Antibiotic Education, Prescription Opioid Use form. - Follow up: Private Physician; When: As needed; Reason: Recheck today's complaints, Re-evaluation by your physician. - Problem is new. - Symptoms have improved. Signatures: Dispatcher [employer] EDAbiel Muñoz MD MD rn Leal, Jahala, RN RN jl7 Vesna Comer RN RN vc Corrections: (The following items were deleted from the chart) 16:19 16:16 Constitutional: This is a well developed, well nourished patient who is awake, rn alert, and in no acute distress. rn 17:00 16:21 12/29/2019 16:21 Discharged to Home. Impression: Contusion of left foot; Pain in vc left hip; Pain in left foot. Condition is Stable. Forms are Medication Reconciliation Form, Thank You Letter, Antibiotic Education, Prescription Opioid Use. Follow up: Private Physician; When: As needed; Reason: Recheck today's complaints, Re-evaluation by your physician. Problem is new. Symptoms have improved. rn
[2019-12-29 16:47] LABS: Blood Morphology Comment NOT SEEN (NOT SEEN); Platelet Estimate ADEQ
[2019-12-29 20:48] LABS: Urine Blood NEGATIVE (NEG); Urine Glucose NEGATIVE (NEG); Urine Protein NEGATIVE (NEG); Urine Specific Gravity 1.015 (1.005-1.030)
[2019-12-29 22:40] VITALS: TEMP 97.2
[2019-12-29 22:41] VITALS: BP 140/79; O2SAT 100
== END 2019-12-29 17:00 | disposition home or self-care (01) ==
LOC: ER 13:24
DX: S90.32XA Contusion of left foot, initial encounter (principal); M25.552 Pain in left hip; X58.XXXA Exposure to other specified factors, initial encounter
CPT/HCPCS: 36415; 80053; 81003; 83880; 85025; 99283

== ENCOUNTER 2024-01-21 18:47 | Emergency (ER) | payer MEDICARE ==
[2024-01-21] MEDS ORDERED: IBUPROFEN 200 MG TAB PO ONE (19:33)
--- NOTE | 2024-01-21 20:07 | RAD REPORT ---
EXAM DESCRIPTION: CT - Head C Spine Mpr Wo Con - 01/21/2024 7:41 pm CLINICAL HISTORY: Head and neck injury status post fall. Head and neck pain COMPARISON: None. TECHNIQUE: Computed axial tomography of the head and cervical spine was obtained. Sagittal and coronal reconstruction was performed. All CT scans are performed using dose optimization technique as appropriate and may include automated exposure control or mA/KV adjustment according to patient size. FINDINGS: An intracranial bleed is not seen. The ventricles are normal in caliber. No significant hypodensity within the brain. An extra-axial fluid collection is not noted. Fluid within the visualized sinuses and mastoids is not seen A cervical fracture is not visualized. No dislocation is noted. IMPRESSION: No acute intracranial abnormality is seen. A cervical fracture is not visualized. If the patient continues to have symptoms to suggest intracranial /spinal cord pathology then MRI wou ld be recommended
--- NOTE | 2024-01-21 20:14 | RAD REPORT ---
EXAM DESCRIPTION: RAD - Forearm Right - 01/21/2024 8:00 pm CLINICAL HISTORY: Right arm pain status post fall FINDINGS: Mild impaction fracture distal radius. Avulsion fracture ulnar styloid process No dislocation
--- NOTE | 2024-01-21 20:14 | RAD REPORT ---
EXAM DESCRIPTION: RAD - Hand Right 3 View - 01/21/2024 7:59 pm CLINICAL HISTORY: Right hand pain status post injury FINDINGS: Mild impaction fracture distal radius. Avulsion fracture ulnar styloid process No dislocation
--- NOTE | 2024-01-21 21:05 | ER ---
Nurse's Notes [facility] Name: Naomy Gutiérrez Age: 63 yrs Sex: Female : 1960 Arrival Date: 01/21/2024 Time: 18:47 Bed 12 Private MD: Diagnosis: Impacted fracture distal radius - left arm;Avulsion fracture ulnar styloid - left;Fall from truck Presentation: 01/20 19:04 Chief complaint: Patient states: Pt states holding onto the side of a truck and fell. dd2 C/o pain Rt hand, rt thumb and head. Denies LOC. Coronavirus screen: At this time, the client does not indicate any symptoms associated with coronavirus-19. Ebola Screen: No symptoms or risks identified at this time. Initial Sepsis Screen: Does the patient meet any 2 criteria? No. Patient's initial sepsis screen is negative. Does the patient have a suspected source of infection? No. Patient's initial sepsis screen is negative. Risk Assessment: Do you want to hurt yourself or someone else? Patient reports no desire to harm self or others. Onset of symptoms was January 21, 2024. 19:04 Method Of Arrival: Ambulatory dd2 19:04 Acuity: ALBARO 3 dd2 Triage Assessment: 19:07 General: Appears uncomfortable, Behavior is cooperative. Pain: Complains of pain in RT dd2 THUMB, RT FOREARM, RT WRIST AND HEAD. Historical: - Allergies: 19:07 No Known Allergies; dd2 - Immunization history:: Adult Immunizations unknown. - Infectious Disease History:: Denies. - Social history:: Smoking status: Patient denies any tobacco usage or history of. Screenin:19 [facility] ED Fall Risk Assessment (Adult) History of falling in the last 3 months, vc1 including since admission No falls in past 3 months (0 pts) Confusion or Disorientation No (0 pts) Intoxicated or Sedated No (0 pts) Impaired Gait No (0 pts) Mobility Assist Device Used No (0 pt) Altered Elimination No (0 pt) Score/Fall Risk Level 0 - 2 = Low Risk Oriented to surroundings, Maintained a safe environment, Educated pt \T\ family on fall prevention, incl call for assistance when getting out of bed. Abuse screen: Denies threats or abuse. Nutritional screening: No deficits noted. Tuberculosis screening: No symptoms or risk factors identified. Assessment: 20:20 General: Appears in no apparent distress. comfortable, Behavior is calm, cooperative, vc1 appropriate for age. Pain: Complains of pain in right hand Quality of pain is described as sharp. Neuro: Level of Consciousness is awake, alert, obeys commands, Oriented to person, place, time, situation, Appropriate for age. Cardiovascular: No deficits noted. Respiratory: Airway is patent Respiratory effort is even, unlabored, Respiratory pattern is regular, symmetrical, Breath sounds are clear bilaterally. GI: No deficits noted. No signs and/or symptoms were reported involving the gastrointestinal system. : No deficits noted. No signs and/or symptoms were reported regarding the genitourinary system. EENT: No deficits noted. No signs and/or symptoms were reported regarding the EENT system. Derm: Skin is intact, is healthy with good turgor, Skin is dry. Musculoskeletal: Reports pain in right hand. Vital Signs: 19:04 BP 196 / 88; Pulse 90; Resp 17; Temp 97.7; Pulse Ox 98% ; dd2 21:44 BP 174 / 84; Pulse 88; Resp 17; Pulse Ox 99% ; vc1 ED Course: 18:49 Patient arrived in ED. mr 18:56 Patti Sheth, MARYELLEN-Edwin is [facility] kb 18:56 Amadou Torres MD is Attending Physician. kb 19:07 Triage completed. dd2 19:07 Arm band placed on left wrist. Patient placed in waiting room. dd2 19:43 CT Head C Spine In Process Unspecified. EDMS 20:01 Hand Right 3 View XRAY In Process Unspecified. EDMS 20:01 Forearm Right XRAY In Process Unspecified. EDMS 20:20 Patient has correct armband on for positive identification. Bed in low position. Adult vc1 w/ patient. 21:05 Orthoglass splint: Sugar tong splint applied on right arm. Sling applied to right arm. kmf 21:43 No provider procedures requiring assistance completed. Patient did not have IV access vc1 during this emergency room visit. Administered Medications: 19:36 Drug: Ibuprofen PO 600 mg PO once Route: PO; vc1 21:12 Follow up: Response: No adverse reaction; Marked relief of symptoms vc1 Medication: 20:20 VIS not applicable for this client. vc1 Outcome: 21:04 Discharge ordered by . kb 21:43 Discharged to home ambulatory, vc1 21:43 Condition: good 21:43 Discharge instructions given to patient, Instructed on discharge instructions, follow up and referral plans. medication usage, Demonstrated understanding of instructions, follow-up care, medications, Prescriptions given X 1, 21:44 Patient left the ED. vc1 Signatures: Dispatcher [employer] EDMS Patti Sheth, FOOD SERVICES MANAGER-C FOOD SERVICES MANAGER-Agata Vaughn, Reg Reg mr Vesna Comer RN RN vc1 [facility]andy [facility] DONNA VILLANUEVA RN RN dd2
--- NOTE | 2024-01-21 21:05 | EDPHYS ---
Physician Documentation [facility] Name: Naomy Gutiérrez Age: 63 yrs Sex: Female : 1960 Arrival Date: 01/21/2024 Time: 18:47 Bed 12 Private MD: ED Physician Amadou Torres HPI: 01/20 21:16 This 63 yrs old Female presents to ER via Ambulatory with complaints of Fall kb Injury, Hand Injury. 21:16 Patient is a 63-year-old female who presents for right wrist pain after falling out of kb her truck around 3 PM. States she was holding onto the handle and slipped causing her to fall onto the ground. Reports she also hit her forehead. Denies LOC. Reports headache. Historical: - Allergies: 19:07 No Known Allergies; dd2 - Immunization history:: Adult Immunizations unknown. - Infectious Disease History:: Denies. - Social history:: Smoking status: Patient denies any tobacco usage or history of. ROS: 21:14 Constitutional: As per HPI kb Exam: 21:17 Constitutional: This is a well developed, well nourished patient who is awake, alert, kb and in no acute distress. ENT: Moist Mucous membranes Cardiovascular: Regular rate Respiratory: Respirations even and unlabored. No increased work of breathing. Talking in full sentences Abdomen/GI: Soft, non-tender. No distention Skin: Warm, dry with normal turgor. Normal color. Neuro: Awake and alert, GCS 15, oriented to person, place, time, and situation. Moves all extremities. Normal gait. 21:17 Head/face: Noted is no obvious of injury or deformity except abrasion(s), that are mild, of the right side of forehead, 21:17 Musculoskeletal/extremity: Extremities: grossly normal except: noted in the right wrist and right hand: contusion, decreased ROM, ecchymosis, pain, swelling, tenderness, ROM: limited active range of motion due to pain, Circulation is intact in all extremities. Sensation intact. Vital Signs: 19:04 BP 196 / 88; Pulse 90; Resp 17; Temp 97.7; Pulse Ox 98% ; dd2 21:44 BP 174 / 84; Pulse 88; Resp 17; Pulse Ox 99% ; vc1 MDM: 18:56 Patient medically screened. kb 21:15 Differential diagnosis: closed head injury, contusion, fracture, sprain. Data reviewed: kb vital signs, nurses notes. Historians other than the Patient: Daughter/Son: daughter. Counseling: I had a detailed discussion with the patient and/or guardian regarding the historical points, exam findings, and any diagnostic results supporting the discharge/admit diagnosis, radiology results, the need for outpatient follow up, a orthopedic surgeon, to return to the emergency department if symptoms worsen or persist or if there are any questions or concerns that arise at home. 01/20 19:07 Order name: CT Head C Spine; Complete Time: 20:10 kb 01/20 19:07 Order name: Hand Right 3 View XRAY; Complete Time: 20:15 kb 01/20 19:07 Order name: Forearm Right XRAY; Complete Time: 20:15 kb 01/20 19:27 Order name: Ice pack; Complete Time: 19:36 kb 01/20 20:20 Order name: Sugar Tong Forearm Splint; Complete Time: 21:12 kb 01/20 20:20 Order name: Sling; Complete Time: 21:12 kb Administered Medications: 19:36 Drug: Ibuprofen PO 600 mg PO once Route: PO; vc1 21:12 Follow up: Response: No adverse reaction; Marked relief of symptoms vc1 Disposition Summary: 01/21/24 21:04 Discharge Ordered Notes: Location: Home kb Condition: Stable kb Diagnosis - Impacted fracture distal radius - left arm kb - Avulsion fracture ulnar styloid - left kb - Fall from truck kb Followup: kb - With: Emergency Department - When: As needed - Reason: Worsening of condition Followup: kb - With: Private Physician - When: 2 - 3 days - Reason: Recheck today's complaints, Continuance of care, Re-evaluation by your physician Discharge Instructions: - Discharge Summary Sheet kb - Radial Fracture kb Forms: - Medication Reconciliation Form kb - Antibiotic Education kb - Prescription Opioid Use kb - Patient Portal Instructions kb - Leadership Thank You Letter Prescriptions: - Diclofenac Sodium 75 mg Oral tablet, delayed release (enteric coated) - take 1 tablet ORAL route 2 times per day As needed; 30 tablet; Refills: 0, kb Product Selection Permitted Signatures: Dispatcher [employer] Patti Singh FNP-C FNP-Ckb Calcote, Vanessa, RN RN vc1 KAY, DONNA, RN RN dd2 Corrections: (The following items were deleted from the chart) 19:08 19:08 Head C Spine MPR Wo Con+CT.RAD.BRZ ordered. EDMS EDMS 19:08 19:08 Hand Right 3 View+RAD.RAD.BRZ ordered. EDMS EDMS 19:08 19:08 Forearm Right+RAD.RAD.BRZ ordered. EDMS EDMS 21:17 21:14 Constitutional: This is a well developed, well nourished patient who is awake, kb alert, and in no acute distress. Head/Face: Normocephalic, atraumatic. ENT: Moist Mucous membranes Cardiovascular: Regular rate Respiratory: Respirations even and unlabored. No increased work of breathing. Talking in full sentences Abdomen/GI: Soft, non-tender. No distention Skin: Warm, dry with normal turgor. Normal color. MS/ Extremity: Pulses equal, no cyanosis. Neurovascular intact. Full, normal range of motion. Neuro: Awake and alert, GCS 15, oriented to person, place, time, and situation. Moves all extremities. Normal gait. kb 21:17 21:14 Back: CVA tenderness, that is moderate, is noted on the right, kb kb
[2024-01-21 21:56] VITALS: TEMP 97.7
[2024-01-21 21:57] VITALS: BP 174/84; O2SAT 99
== END 2024-01-21 21:44 | disposition home or self-care (01) ==
LOC: ER 18:47
PROC: 2W3CX1Z Immobilization of Right Lower Arm using Splint (ICD-10-PCS; principal; 2024-01-21)
DX: S52.501A Unspecified fracture of the lower end of right radius, initial encounter for closed fracture (principal); S52.611A Displaced fracture of right ulna styloid process, initial encounter for closed fracture; R51.9 Headache, unspecified; W17.89XA Other fall from one level to another, initial encounter
CPT/HCPCS: 70450; 72125

== ENCOUNTER 2024-07-03 15:44 | Emergency (ER) | payer OTHER ==
--- OUTSIDE RECORDS SUMMARY | 2024-07-03 15:47 | XMS REPORT | Continuity of Care Document ---
Author Name Unknown Address [address] [facility] [address] [place], [place] [id number] [place] [address] thconnect Address [address] [facility] [address] [place] [address] Care Team Providers Care Explosives Detonator Name Role Phone HUY HOLLAND Primary Care Physician Unavailab Linette Gamez Attending Clinician Unavailabl e MEEK_GCBZW_Prema_S Attending Clinician UnavailDR APARNA Cummings Attending Clinician Unavailable Fages_C Attending Clinician Unavailable Canales_M Attending Clinician Unavailable HUY HOLLAND Attending Clinician Unavailable MEEK_GCBZW_Prema_S Admitting Clinician UnavailDR APARNA Cummings Admitting Clinician Unavailable Fages_C Admitting Clinician Unavailable Canales_M Admitting Clinician Unavailable Payers Payer Name Policy Type Policy Number Effective Date Expirati on Date Source 1000 [id number] 2022 00:00:00 [facility] [employer] (MEDICARE REPLACEMENT HMO) [id number] 00:00:00 Problems Condition Name Condition Details Condition Category Status Onset Date Resolution Date Last Treatment Date Treating Clinician Comments Source Atrophy of skeletal muscle of pelvis Atrophy of Skeletal Muscle of Pelvis Problem Active 02-02 00:00: 00 [facility] Urgent desire to urinate Urgent Desire to Urinate Problem Active 09-29 00:00: 00 [facility] Atrophic vaginitis Atrophic Vaginitis Problem Active - 00:00: 00 [facility] Urge incontinen ce of urine Urge Incontinen ce of Urine Problem Active - 00:00: 00 [facility] Bipolar disorder Bipolar Disorder Problem Active 09-25 00:00: 00 [facility] Cystocele Cystocele Problem Active 09-25 00:00: 00 [facility] Female stress incontinen ce Female Stress Incontinen ce Problem Active 09-25 00:00: 00 [facility] Postmenopa usal bleeding Postmenopa usal Bleeding Problem Active 09-25 00:00: 00 [facility] Muscle atrophy Muscle Atrophy Problem Active 09-24 00:00: 00 [facility] Gynecologi yolanda examinatio n abnormal Gynecologi yolanda Examinatio n Abnormal Problem Active 07-03 00:00: 00 [facility] Hypothyroi dism Hypothyroi dism Problem [facility] Allergies, Adverse Reactions, Alerts Allergy Name Allergy Type Status Severity Reaction(s) Onset Date Inactive Date Treating Clinician Comments Source NO KNOWN ALLERGIE S Drug Class Active [facility] Social History Social Habit Start Date Stop Date Quantity Comments Source Sex Assigned At [facility] History of Tobacco Use [facility] Smoking Status Start Date Stop Date Source Never Smoker [facility] Medications Ordered Medication Name Filled Medication Name Start Date Stop Date Current Medication? Ordering Clinician Indication Dosage Frequency Signature (SIG) Comments Components Source ketorolac 30 mg/mL (1 mL) injection solution Inject 1 mL every 6 hours by intramuscul ar route. ketorolac 30 mg/mL (1 mL) injection solution Inject 1 mL every 6 hours by intramuscul ar route. 12-25 08:52: 35 No 1mL Q6H ketorolac 30 mg/mL (1 mL) injection solution Inject 1 mL every 6 hours by intramuscu lar route. [facility] Levothyroxi ne Sodium 50 MCG Levothyroxi ne Sodium 50 MCG 3 00:00: 00 No QD Levothyrox ine Sodium 50 MCG Haloperidol 5 MG Haloperidol 5 MG No 1{table t} QD Haloperido l 5 MG Celebrex 200 mg capsule Take 1 capsule every day by oral route as directed for 1 day. Celebrex 200 mg capsule Take 1 capsule every day by oral route as directed for 1 day. No 1capsul e(s) Q1D Celebrex 200 mg capsule Take 1 capsule every day by oral route as directed for 1 day. [facility] oxybutynin chloride ER 10 mg tablet,exte nded release 24 hr Take 1 tablet every day by oral route for 90 days. oxybutynin chloride ER 10 mg tablet,exte nded release 24 hr Take 1 tablet every day by oral route for 90 days. No 1 Q1D oxybutynin chloride ER 10 mg tablet,ext ended release 24 hr Take 1 tablet every day by oral route for 90 days. [facility] benztropine 2 mg tablet 1 tablet; Once a day; 30 day(s) benztropine 2 mg tablet 1 tablet; Once a day; 30 day(s) No benztropin e 2 mg tablet 1 tablet; Once a day; 30 day(s) [facility] betamethaso ne dipropionat e 0.05 % topical cream 1 application ; Once a day betamethaso ne dipropionat e 0.05 % topical cream 1 application ; Once a day No betamethas one dipropiona te 0.05 % topical cream 1 applicatio n; Once a day [facility] clobetasol clobetasol No clobetasol [facility] divalproex divalproex No divalproex [facility] divalproex 500 mg tablet,ghassan yed release 1 tablet; Once a day; 30 day(s) divalproex 500 mg tablet,ghassan yed release 1 tablet; Once a day; 30 day(s) No divalproex 500 mg tablet,del ayed release 1 tablet; Once a day; 30 day(s) [facility] Divalproex Sodium ER 500 MG Divalproex Sodium ER 500 MG No 1{table t} QD Divalproex Sodium ER 500 MG ergocalcife rol (vitamin D2) 1,250 mcg (50,000 unit) capsule 1 capsule; 30 day(s) ergocalcife rol (vitamin D2) 1,250 mcg (50,000 unit) capsule 1 capsule; 30 day(s) No ergocalcif franchesca (vitamin D2) 1,250 mcg (50,000 unit) capsule 1 capsule; 30 day(s) [facility] estradiol 0.01% (0.1 mg/gram) vaginal cream Insert 0.5 g 3 times a week by vaginal route at bedtime for 90 days. estradiol 0.01% (0.1 mg/gram) vaginal cream Insert 0.5 g 3 times a week by vaginal route at bedtime for 90 days. No .5g Q56H estradiol 0.01% (0.1 mg/gram) vaginal cream Insert 0.5 g 3 times a week by vaginal route at bedtime for 90 days. [facility] fluocinonid e 0.05 % topical cream APPLY TO THE AFFECTED AREA(S) BY TOPICAL ROUTE 2 TIMES PER DAY fluocinonid e 0.05 % topical cream APPLY TO THE AFFECTED AREA(S) BY TOPICAL ROUTE 2 TIMES PER DAY No fluocinoni de 0.05 % topical cream APPLY TO THE AFFECTED AREA(S) BY TOPICAL ROUTE 2 TIMES PER DAY [facility] fluocinonid e 0.05 % topical solution 1 application ; Twice a day fluocinonid e 0.05 % topical solution 1 application ; Twice a day No fluocinoni de 0.05 % topical solution 1 applicatio n; Twice a day [facility] haloperidol haloperidol No munson loperido l [facility] haloperidol 5 mg tablet 1 tablet; Once a day; 30 day(s) haloperidol 5 mg tablet 1 tablet; Once a day; 30 day(s) No haloperido l 5 mg tablet 1 tablet; Once a day; 30 day(s) [facility] ketoconazol e ketoconazol e No ketoconazo le [facility] levothyroxi ne 50 mcg tablet 1 tablet in the morning on an empty stomach; Once a day; 30 day(s) levothyroxi ne 50 mcg tablet 1 tablet in the morning on an empty stomach; Once a day; 30 day(s) No levothyrox ine 50 mcg tablet 1 tablet in the morning on an empty stomach; Once a day; 30 day(s) [facility] Macrobid 100 mg capsule Take 1 capsule twice a day by oral route for 5 days. Macrobid 100 mg capsule Take 1 capsule twice a day by oral route for 5 days. No 1capsul e(s) BID Macrobid 100 mg capsule Take 1 capsule twice a day by oral route for 5 days. [facility] Vitamin D 50 MCG (1999) Vitamin D 50 MCG (1999) No 1{table t} QD Vitamin D 50 MCG (1999) Levothyroxi ne Sodium 25 MCG Levothyroxi ne Sodium 25 MCG No QD Levothyrox ine Sodium 25 MCG Benztropine Mesylate 2 MG Benztropine Mesylate 2 MG No 1{table t} QD Benztropin e Mesylate 2 MG Vital Signs Vital Name Observation Time Observation Value Comments S ource Height 2024-02-03 00:00:00 64 [in_i] [facility] BP Diastolic 2024-02-03 00:00:00 79 mm[Hg] [facility] Body Weight 2024-02-03 00:00:00 208 [lb_av] [facility] BP Systolic 2024-02-03 00:00:00 116 mm[Hg] [facility] BMI (Body Mass Index) 2024-02-03 00:00:00 35.7 kg/m2 [facility] BP Diastolic 2024-01-09 00:00:00 79 mm[Hg] [facility] Height 2024-01-09 00:00:00 64 [in_i] [facility] BP Systolic 2024-01-09 00:00:00 116 mm[Hg] [facility] Body Weight 2024-01-09 00:00:00 207.4 [lb_av] [facility] BMI (Body Mass Index) 2024-01-09 00:00:00 35.6 kg/m2 [facility] BP Systolic 2023-12-26 00:00:00 131 mm[Hg] [facility] BP Diastolic 2023-12-26 00:00:00 74 mm[Hg] [facility] Height 2023-12-26 00:00:00 64 [in_i] [facility] BMI (Body Mass Index) 2023-12-26 00:00:00 33.6 kg/m2 [facility] Body Weight 2023-12-26 00:00:00 196 [lb_av] [facility] height 2023-12-03 08:45:00 63 [in_i] [facility] weight-kg 2023-12-03 08:45:00 93.44 kg [facility] bmi 2023-12-03 08:45:00 36.49 kg/m2 Sarah [facility] heart rate 2023-12-03 08:45:00 72 /min [facility] blood pressure systolic 2023-12-03 08:45:00 132 mm[Hg] [facility] pressure diastolic 2023-12-03 08:45:00 87 mm[Hg] [facility] BP Systolic 2023-09-30 00:00:00 145 mm[Hg] [facility] Height 2023-09-30 00:00:00 64 [in_i] [facility] BP Diastolic 2023-09-30 00:00:00 91 mm[Hg] [facility] Body Weight 2023-09-30 00:00:00 196 [lb_av] [facility] BP Diastolic 2023-09-26 00:00:00 85 mm[Hg] [facility] BMI (Body Mass Index) 2023-09-26 00:00:00 33.6 kg/m2 [facility] BP Systolic 2023-09-26 00:00:00 139 mm[Hg] [facility] Body Weight 2023-09-26 00:00:00 196 [lb_av] [facility] Height 2023-09-26 00:00:00 64 [in_i] [facility] Weight 2022-11-19 17:32:00 86 KG Procedures Procedure Date / Time Performed Performing Clinicia n Source US, transvaginal 2023-10-02 00:00:00 [facility] Cystoscopy 2023-09-30 00:00:00 [facility] ed[facility] MAMMO, screening, digital, bilateral 2023-09-26 00:00:00 [facility] Tubal Ligation 1996-06-09 00:00:00 [facility] Encounters Start Date/Time End Date/Time Encounter Type Admission Type Attending [facility] Care Facility Care Department Encounter ID Source 2024-06-09 14:45:00 Outpatient Linette Guo [facility] [id number] [facility] 2023-12-03 08:09:01 Outpatient Linette Guo [facility] [id number] [facility] 2024-02-03 00:00:00 2024-02-03 00:00:00 Sandra Amaya MD: [address] [place] [address] [address], [place] [address], [place] [address] , Ph. [facility] - GC_GCBZW_[facility]* [id number] [facility] 2024-01-09 00:00:2024-01-09 00:00:00 RADHA Sena: [address], [address], [place] [id number] , Ph. [facility] - GC_GCBZW_[place] annalisa Domenic* [id number] [facility] 2023-12-26 00:00:00 2023-12-26 00:00:00 Sandra Amaya MD: [address], [address], [place] [id number] , Ph. [facility] - GC_GCBZW_Ga annalisa Bradley* [id number] [facility] 2023-12-03 00:00:00 2023-12-03 00:00:00 Office Visit- Est Pt.- Level 4 CLS [facility] [id number] [facility] 2023-[facility]-04 00:00:00 2023-11-04 00:00:00 Sandra Amaya MD: [address], [address] , Ph. [facility] - GC_GCBZW_Ga annalisa Domenic* [id number] [facility] 2023-10-06 00:00:00 2023-10-06 00:00:00 RADHA Sena: [address], [address], [place] [id number] , Ph. [facility] - GC_GCBZW_Ga annalisa Domenic* [id number] [facility] 2023-10-02 00:00:00 2023-10-02 00:00:00 Sandra Amaya MD: [address], [address], [place] [id number] , Ph. [facility] - GC_GCBZW_Ga annalisa Domenic* [id number] [facility] 2023-09-30 00:00:00 2023-09-30 00:00:00 Sandra Amaya MD: [address], [place] [address] , Ph. [facility] - GC_GCBZW_[place] annalisa Bradley* [id number] [facility] 2023-09-26 00:00:00 2023-09-26 00:00:00 NATHAN PiñaP: [address], [place] [address] , Ph. [facility] - GC_GCBZW_La annalisa Bradley* [id number] [facility] 2023-04-09 00:00:00 2023-04-09 00:00:00 Outpatient GC_GCBZW_Ka carolinea_S [facility] [id number] [facility] 2022-11-19 17:25:00 2022-11-19 18:05:00 Emergency E ASEH, [facility] [address] [id number] [facility] 2022-08-23 00:00:00 2022-08-23 00:00:00 Outpatient Fages_C DMG DMG [id number] [facility] 2022-08-23 00:00:00 2022-08-23 00:00:00 Outpatient Fages_C DMG DMG [id number] [facility] 2022-05-13 00:00:00 2022-05-13 00:00:00 Outpatient Canales_M DMG DMG [id number] [facility] 2021-12-21 07:17:00 2021-12-21 07:17:00 Outpatient Canales_M DMG DMG [id number] [facility] 2021-12-06 13:00:00 2021-12-06 13:00:00 Outpatient HUY CISNEROS [facility] [id number] [facility] 2020-12-18 01:48:00 2020-12-18 01:48:00 Outpatient Canales_M DMG DMG [id number] [facility] Results Test Description Test Time Test Comments Results Result Co mments Source [facility]dipstick) panel - [id number] 08:49:49* Test Item Value Reference Range Interpretation Comme nts Leukocytes (test code = Leukocytes) Negative Nitrite (test code = Nitrite) negative Urobilinogen (test code = Urobilinogen) Normal Protein (test code = Protein) Negative pH (test code = pH) 6.0 Blood (test code = Blood) Negative Specific [place] (test code = Specific [place]) 1.015 Ketone (test code = Ketone) Negative Bilirubin (test code = Bilirubin) Negative Glucose (test code = Glucose) Negative Appearance (test code = Appearance) Clear Color (test code = Color) Yellow [facility] macro (dipstick) panel - [id number] 10:18:00* Test Item Value Reference Range Interpretation Comme nts Leukocytes (test code = Leukocytes) Negative Nitrite (test code = Nitrite) negative Urobilinogen (test code = Urobilinogen) Normal [facility]
[2024-07-03] MEDS ORDERED: KETOROLAC 30 MG/ML INJ ONE (16:30)
--- NOTE | 2024-07-03 17:10 | RAD REPORT ---
Exam:Ankle Left 3 View HISTORY: left ankle pain FINDINGS: Minimally displaced fracture medial malleolus. Marked soft tissue swelling No dislocation
--- NOTE | 2024-07-03 17:35 | EDPHYS ---
Physician Documentation [facility] Name: Naomy Gutiérrez Age: 64 yrs Sex: Female : 1960 Arrival Date: 07/03/2024 Time: 15:44 Bed 14 Private MD: ED Physician Stuart Munoz HPI: 07/03 19:08 This 64 yrs old Female presents to ER via Ambulatory with complaints of Fall rt Injury. 19:08 Patient presents to the ED 3 weeks following a fall. Patient states that he tripped and rt fell, hurting her ankle. Patient also reports that for about a year she has had a cough and a back pain when she coughs. Denies any discrete back injury. Her physician says that she has allergies, states that allergy medicines do improve the symptoms. Denies other acute complaints at this time, symptoms are mild in severity, aching nature, nonradiating, no other aggravating or alleviating factors.. Historical: - Allergies: 16:10 No Known Allergies; ko1 - PMHx: 16:10 Bipolar disorder; Depression; Schizophrenia; ko1 - PSHx: 16:10 None; ko1 - Immunization history:: Adult Immunizations unknown. - Infectious Disease History:: Denies. - Social history:: Smoking status: Patient denies any tobacco usage or history of. - Family history:: not pertinent. ROS: 19:08 Constitutional: Negative for fever, chills, and weight loss, Cardiovascular: Negative rt for chest pain, palpitations, and edema, Abdomen/GI: Negative for abdominal pain, nausea, vomiting, diarrhea, and constipation, 19:08 Respiratory: Positive for cough, Negative for shortness of breath, 19:08 Back: Positive for pain at rest, Negative for injury or acute deformity, 19:08 MS/extremity: Positive for pain, swelling, Exam: 19:08 Constitutional: This is a well developed, well nourished patient who is awake, alert, rt and in no acute distress. Head/Face: Normocephalic, atraumatic. Chest/axilla: Normal chest wall appearance and motion. Nontender with no deformity. No lesions are appreciated. Cardiovascular: Regular rate and rhythm with a normal S1 and S2. No gallops, murmurs, or rubs. Normal PMI, no JVD. No pulse deficits. Respiratory: Lungs have equal breath sounds bilaterally, clear to auscultation and percussion. No rales, rhonchi or wheezes noted. No increased work of breathing, no retractions or nasal flaring. Abdomen/GI: Soft, non-tender, with normal bowel sounds. No distension or tympany. No guarding or rebound. No evidence of tenderness throughout. Neuro: Awake and alert, GCS 15, oriented to person, place, time, and situation. Cranial nerves II-XII grossly intact. Motor strength 5/5 in all extremities. Sensory grossly intact. Cerebellar exam normal. Normal gait. 19:08 Musculoskeletal/extremity: Swelling medially on the left ankle, mild tenderness, no deformities, pulses, motor, sensation intact. Vital Signs: 16:08 BP 144 / 89; Pulse 97; Resp 18; Temp 98.3; Pulse Ox 99% ; ko1 16:12 BP 125 / 96; Pulse 90; Resp 16; Pulse Ox 98% on R/A; db 17:00 BP 146 / 70; Pulse 83; Resp 16; Pulse Ox 97% on R/A; db 18:00 BP 119 / 97; Pulse 80; Resp 16; Pulse Ox 100% on R/A; db [place] Coma Score: 16:12 Eye Response: spontaneous(4). Motor Response: obeys commands(6). Verbal Response: db oriented(5). Total: 15. Trauma Score (Adult): 16:12 Eye Response: spontaneous(1); Verbal Response: oriented(1); Motor Response: obeys db commands(2); Systolic BP: > 89 mm Hg(4); Respiratory Rate: 10 to 29 per min(4); [place] Score: 15; Trauma Score: 12 MDM: 16:14 Medical Screening Exam initiated rt 19:08 Differential diagnosis: Fracture, sprain. Data reviewed: vital signs, nurses notes, rt radiologic studies. I considered the following discharge prescriptions or medication management in the emergency department Medications were administered in the Emergency Department. See MAR. Independent interpretation of the following test(s) in the Emergency Department X-Ray: My interpretation is Nondisplaced fracture of left medial malleolus. Test considered but Not performed: Other Details Cough has been present for over 1 month, no head trauma. CT of the head, chest x-ray are not indicated. Counseling: I had a detailed discussion with the patient and/or guardian regarding the historical points, exam findings, and any diagnostic results supporting the discharge/admit diagnosis, radiology results, the need for outpatient follow up. Response to treatment: the patient's symptoms have markedly improved after treatment. 07/03 16:21 Order name: Ankle Left 3 View XRAY; Complete Time: 17:14 rt 07/03 17:37 Order name: Misc. Order: orthopedic boot; Complete Time: 18:07 rt Administered Medications: 16:33 Drug: Ketorolac IM 30 mg IM once Route: IM; Site: right ventrogluteal; db 18:07 Follow up: Response: No adverse reaction; Pain is decreased db Disposition Summary: 07/03/24 17:34 Discharge Ordered Notes: Location: Home rt Problem: an ongoing problem rt Symptoms: have improved rt Condition: Stable rt Diagnosis - Nondisplaced fracture of left medial malleolus rt Followup: rt - With: Sanjiv Mccann MD - When: 5 - 6 days - Reason: Discharge Instructions: - Discharge Summary Sheet rt - Ankle Fracture rt Forms: - Medication Reconciliation Form rt - Antibiotic Education rt - Prescription Opioid Use rt - Patient Portal Instructions rt - Leadership Thank You Letter rt Prescriptions: - ketorolac 10 mg Oral tablet - take 1 tablet ORAL route every 6 hours for 5 days as needed; 9 tablet; Refills: rt 0, Product Selection Permitted Signatures: Dispatcher [employer] Denise Ware, RN RN ko1 Ayesha Hernandez RN RN Stuart Martinez MD MD rt
--- NOTE | 2024-07-03 17:35 | ER ---
Nurse's Notes [facility] Name: Naomy Gutiérrez Age: 64 yrs Sex: Female : 1960 Arrival Date: 07/03/2024 Time: 15:44 Bed 14 Private MD: Diagnosis: Nondisplaced fracture of left medial malleolus Presentation: 07/03 16:08 Chief complaint: Patient states: fell 3 weeks ago, having LLE and back pain now, also ko1 having a cough. Coronavirus screen: At this time, the client does not indicate any symptoms associated with coronavirus-19. Ebola Screen: No symptoms or risks identified at this time. Initial Sepsis Screen: Does the patient meet any 2 criteria? No. Patient's initial sepsis screen is negative. Does the patient have a suspected source of infection? No. Patient's initial sepsis screen is negative. Risk Assessment: Do you want to hurt yourself or someone else? Patient reports no desire to harm self or others. Onset of symptoms is unknown. 16:08 Method Of Arrival: Ambulatory ko1 16:08 Acuity: ALBARO 3 ko1 Triage Assessment: 16:10 General: Appears in no apparent distress. Behavior is calm, cooperative, appropriate ko1 for age. Pain: Complains of pain in back and left leg. Historical: - Allergies: 16:10 No Known Allergies; ko1 - PMHx: 16:10 Bipolar disorder; Depression; Schizophrenia; ko1 - PSHx: 16:10 None; ko1 - Immunization history:: Adult Immunizations unknown. - Infectious Disease History:: Denies. - Social history:: Smoking status: Patient denies any tobacco usage or history of. - Family history:: not pertinent. Screenin:12 Abuse screen: Denies threats or abuse. Denies injuries from another. Tuberculosis db screening: No symptoms or risk factors identified. 18:21 [facility] ED Fall Risk Assessment (Adult) History of falling in the last 3 months, db including since admission Yes- single mechanical fall (1 pt) Confusion or Disorientation No (0 pts) Intoxicated or Sedated No (0 pts) Impaired Gait No (0 pts) Mobility Assist Device Used No (0 pt) Altered Elimination No (0 pt) Score/Fall Risk Level 0 - 2 = Low Risk Oriented to surroundings, Maintained a safe environment. Nutritional screening: No deficits noted. Assessment: 16:13 Reassessment: Patient appears in no apparent distress at this time. Patient and/or db family updated on plan of care and expected duration. Pain level reassessed. Patient is alert, oriented x 3, equal unlabored respirations, skin warm/dry/pink. REPORT LEFT ANKLE PAIN AND FALLING. General: Appears in no apparent distress. comfortable, Behavior is calm, cooperative. 16:26 Reassessment: Patient appears in no apparent distress at this time. Neuro: Level of db Consciousness is awake, alert, obeys commands, Oriented to person, place, time, situation. 18:21 Reassessment: Patient appears in no apparent distress at this time. Patient and/or db family updated on plan of care and expected duration. Pain level reassessed. Patient is alert, oriented x 3, equal unlabored respirations, skin warm/dry/pink. Vital Signs: 16:08 BP 144 / 89; Pulse 97; Resp 18; Temp 98.3; Pulse Ox 99% ; ko1 16:12 BP 125 / 96; Pulse 90; Resp 16; Pulse Ox 98% on R/A; db 17:00 BP 146 / 70; Pulse 83; Resp 16; Pulse Ox 97% on R/A; db 18:00 BP 119 / 97; Pulse 80; Resp 16; Pulse Ox 100% on R/A; db [place] Coma Score: 16:12 Eye Response: spontaneous(4). Motor Response: obeys commands(6). Verbal Response: db oriented(5). Total: 15. Trauma Score (Adult): 16:12 Eye Response: spontaneous(1); Verbal Response: oriented(1); Motor Response: obeys db commands(2); Systolic BP: > 89 mm Hg(4); Respiratory Rate: 10 to 29 per min(4); [place] Score: 15; Trauma Score: 12 ED Course: 15:47 Patient arrived in ED. mr 15:48 Stuart Munoz MD is Attending Physician. rt 16:10 Triage completed. ko1 16:10 Arm band placed on right wrist. Patient placed in an exam room, on a stretcher, on ko1 pulse oximetry, Patient notified of wait time. 16:12 Patient has correct armband on for positive identification. Bed in low position. Call db light in reach. Side rails up X 1. 16:13 Ayesha Hernandez, RN is Primary Nurse. db 16:56 Ankle Left 3 View XRAY In Process Unspecified. EDMS 17:34 Sanjiv Mccann MD is Referral Physician. rt 18:20 LEFT FOOT BOOT. Patient maintains SpO2 saturation greater than 95% on room air. db 18:21 Provided Education on: DISCHARGE AND FOLLOWUP. db 18:21 No provider procedures requiring assistance completed. Patient did not have IV access db during this emergency room visit. Administered Medications: 16:33 Drug: Ketorolac IM 30 mg IM once Route: IM; Site: right ventrogluteal; db 18:07 Follow up: Response: No adverse reaction; Pain is decreased db Medication: 18:21 VIS not applicable for this client. db Outcome: 17:34 Discharge ordered by MD. rt 18:21 Discharged to home ambulatory, db 18:21 Condition: stable 18:21 Discharge instructions given to patient, Instructed on discharge instructions, follow up and referral plans. Prescriptions given X 1, 18:22 Patient left the ED. db Signatures: Dispatcher [employer] EDKY McclendonAgata walls, Reg Reg mr Denise Balderas, RN RN ko1 Ayesha Hernandez, RN RN db Stuart Munoz MD MD rt Corrections: (The following items were deleted from the chart) 16:26 16:13 Reassessment: Patient appears in no apparent distress at this time. Patient db and/or family updated on plan of care and expected duration. Pain level reassessed. Patient is alert, oriented x 3, equal unlabored respirations, skin warm/dry/pink. db
[2024-07-03 22:04] VITALS: TEMP 98.3
[2024-07-03 22:07] VITALS: BP 119/97; O2SAT 100
== END 2024-07-03 18:22 | disposition home or self-care (01) ==
LOC: ER 15:44
DX: S82.55XA Nondisplaced fracture of medial malleolus of left tibia, initial encounter for closed fracture (principal); R05.9 Cough, unspecified; W01.0XXA Fall on same level from slipping, tripping and stumbling without subsequent striking against object, initial encounter
CPT/HCPCS: 96372; 99284